=== PATIENT | male | born 1995 | race African-American/Black ===

== ENCOUNTER 2025-08-23 12:56 | Inpatient (IN) | payer OTHER ==
[~2025-08-23] VITALS: Ht 175.3 cm; Wt 81.8 kg
[2025-08-23 13:41] LABS: PLATELET COUNT, AUTOMATED 319 10^3/uL (150-450)
[2025-08-23 14:04] LABS: ETHYL ALCOHOL (ETHANOL) < 0.003 % (0.000-0.010)
[2025-08-23 14:06] LABS: ALT/SGPT 50 U/L (7.0-40); AST/SGOT 30 U/L (<34); CALCIUM LEVEL 10.0 MG/DL (8.5-10.1); CARBON DIOXIDE LEVEL 31 MMOL/L (20-31); CHLORIDE LEVEL 103 MMOL/L (98-107); CREATININE FOR GFR 0.99 MG/DL (0.70-1.30); GLOMERULAR FILTRATION RATE > 90.0 (>60); POTASSIUM SERUM 4.6 MMOL/L (3.5-5.1); SALICYLATE LEVEL < 3.0 MG/DL (<30); SODIUM LEVEL 143 MMOL/L (136-145)
[2025-08-23 14:16] LABS: AMPHETAMINES LEVEL URINE NEGATIVE (NEGATIVE); BARBITURATES URINE NEGATIVE (NEGATIVE); BENZODIAZEPINES URINE NEGATIVE (NEGATIVE); CANNABINOIDS URINE POSITIVE (NEGATIVE); COCAINE METABOLITE URINE NEGATIVE (NEGATIVE); METHADONE URINE NEGATIVE (NEGATIVE); OPIATES URINE NEGATIVE (NEGATIVE); PHENCYCLIDINE URINE NEGATIVE (NEGATIVE)
[2025-08-23] MEDS ORDERED: MAALOX 30 ML SUSP *UDC PO PRN (16:30)
[2025-08-23] MEDS ORDERED: traZODone 50 MG TAB PO PRN (16:30)
[2025-08-23] MEDS ORDERED: OLANZapine 5 MG TAB PO PRN (16:30)
[2025-08-23] MEDS ORDERED: MOM 30 ML SUSPENSION UDC PO PRN (16:30)
[2025-08-23] MEDS ORDERED: LORazepam 1 MG TAB PO PRN (16:30)
[2025-08-23] MEDS ORDERED: IBUPROFEN 400 MG TAB PO PRN (16:30)
[2025-08-23] MEDS ORDERED: HALOPERIDOL 5 MG TAB PO PRN (16:30)
[2025-08-23] MEDS ORDERED: HOME MED LIST COMPLETE! XX SCH (17:00)
[2025-08-23] MEDS: ACETAMINOPHEN 325 MG TAB PO PRN (21:32)
[2025-08-23 21:51] VITALS: BP 135/80; TEMP 97.7; O2SAT 99
[2025-08-24 06:26] VITALS: BP 131/74; TEMP 97.4; O2SAT 100
[2025-08-24] MEDS: NICOTINE 14 MG/24 HR TRANSDERMAL TD SCH (08:43)
[2025-08-24] MEDS: VENLAFAXINE **XR** 37.5 MG CAPSULE PO SCH (16:51)
[2025-08-25 06:19] VITALS: BP 122/98; TEMP 97.4; O2SAT 99
[2025-08-25 09:13] VITALS: BP 131/98; TEMP 97.6; O2SAT 99
[2025-08-25 14:45] VITALS: BP 140/79; TEMP 98; O2SAT 99
[2025-08-26 06:36] VITALS: BP 141/84; TEMP 97.9; O2SAT 99
[2025-08-26 15:38] VITALS: BP 141/83; TEMP 98.1; O2SAT 98
[2025-08-27 06:32] VITALS: BP 138/78; TEMP 98.4; O2SAT 97
[2025-08-27] MEDS: VENLAFAXINE **XR** 37.5 MG CAPSULE PO ONE (08:24)
[2025-08-27 15:15] VITALS: BP 145/88; TEMP 98.2; O2SAT 95
[2025-08-28 06:00] VITALS: BP 144/84; TEMP 97.7; O2SAT 99
[2025-08-28] MEDS: VENLAFAXINE **XR** 37.5 MG CAPSULE PO SCH (08:03)
[2025-08-28] MEDS ORDERED: VENL75CA47 PO (09:10)
[2025-08-28] MEDS ORDERED: ABIL1TAB13 PO (09:10)
== END 2025-08-28 11:39 | disposition home or self-care (01) | DRG 885 ==
LOC: EDBD 12:56 → M ED 12:56 → M ED INP 16:30 → M PSY 20:45
PROVIDERS: ADMIT Internal Medicine; ATTEND Internal Medicine
DX: F33.1 Major depressive disorder, recurrent, moderate (principal); R45.851 Suicidal ideations; F41.9 Anxiety disorder, unspecified; F10.20 Alcohol dependence, uncomplicated; F12.90 Cannabis use, unspecified, uncomplicated; G47.00 Insomnia, unspecified; Z71.41 Alcohol abuse counseling and surveillance of alcoholic; Z71.51 Drug abuse counseling and surveillance of drug abuser; Z56.4 Discord with boss and workmates